=== PATIENT | male | born 1980 | race Hispanic/Latino ===

== ENCOUNTER 2017-01-29 20:07 | Emergency (ER) | payer SELFPAY ==
[~2017-01-29] VITALS: Ht 172.7 cm; Wt 78.2 kg
[2017-01-30 01:08] LABS: HEMATOCRIT 46.5 % (38.0-50.0); MCH 25.6 PG (29.0-34.0); MCHC 31.8 G/DL (30.0-36.0); MCV 80.4 FL (86-99); MEAN PLAT.VOLUME 10.4 uM^3 (9.0-12.4); PLATELET COUNT 262 K/uL (156-360); RBC DIS.WIDTH-SD 40.6 % (39-53); RED BLOOD COUNT 5.78 M/uL (4.00-5.50); WHITE BLOOD COUNT 5.9 K/uL (4.1-10.2)
[2017-01-30 01:18] LABS: CHLORIDE 106 mEq/L (99-109); SODIUM 139 mEq/L (136-147)
[2017-01-30 01:20] LABS: GLUCOSE 110 mg/dL (70-99)
[2017-01-30 01:21] LABS: ANION GAP 10 MEQ/L (2-14)
[2017-01-30 01:24] LABS: GFR ESTIMATE (CALCULATED) > 59 mL/min/; UREA NITROGEN (BUN) 13 mg/dL (9-23)
[2017-01-30] MEDS ORDERED: SKELAXIN800 MG PO (02:11)
[2017-01-30] MEDS ORDERED: NAPROXEN500 MG PO (02:11)
[2017-01-30 02:32] VITALS: BP 121/62
== END 2017-01-30 02:34 | disposition home or self-care (01) ==
LOC: EME 20:07
PROVIDERS: Physician Assistant
DX: S16.1XXA Strain of muscle, fascia and tendon at neck level, initial encounter (principal); W22.8XXA Striking against or struck by other objects, initial encounter; Y99.0 Civilian activity done for income or pay; D44.6 Neoplasm of uncertain behavior of carotid body; R51 Headache; F17.200 Nicotine dependence, unspecified, uncomplicated
CPT/HCPCS: 70491; 72125; 80048; 85027; 99281; 99285; J8540